=== PATIENT | female | born 1980 | race Caucasian/White ===

== ENCOUNTER 2021-10-16 23:51 | Emergency (ER) | payer OTHER, SELFPAY ==
--- NOTE | ~2021-10-16 | XR_ITS ---
EXAMINATION: XR hand RT min 3V DATE: 10/17/2021 00:20 INDICATION: Right hand injury and pain. TECHNIQUE: 3 views of right hand were obtained. COMPARISON: None. FINDINGS: Bone alignment is normal. No fracture. Joint spaces are normal. IMPRESSION: 1. No fracture. Reviewed, dictated and finalized at location A. IMPRESSION: 1. No fracture.
--- NOTE | ~2021-10-16 | XR_ITS ---
EXAMINATION: XR wrist RT min 3V DATE: 10/17/2021 00:20 INDICATION: Right wrist injury and pain. TECHNIQUE: 4 views of right wrist were obtained. COMPARISON: None. FINDINGS: Bone alignment is normal. No fracture. Joint spaces are normal. IMPRESSION: 1. No fracture. Reviewed, dictated and finalized at location A. IMPRESSION: 1. No fracture.
[2021-10-16 23:53] VITALS: BP 134/69; PULSE 68; RESP 16; TEMP 36.1; O2SAT 100
--- NOTE | 2021-10-17 00:31 | ED.UPPEXIN ---
HPI - Extremity Injury (Upper) General Chief Complaint: Extremity Injury, Upper <JOHNNIE Bradshaw Last Filed: 10/17/21 01:06> Stated Complaint: R WRIST INJURY <JOHNNIE Bradshaw Last Filed: 10/17/21 01:06> Time Seen by Provider: 10/17/21 00:22 <JOHNNIE Bradshaw Last Filed: 10/17/21 01:06> Source: patient <JOHNNIE Bradshaw Last Filed: 10/17/21 01:06> Mode of arrival: ambulatory <JOHNNIE Bradshaw Last Filed: 10/17/21 01:06> Limitations: no limitations <JOHNNIE Bradshaw Last Filed: 10/17/21 01:06> History of Present Illness HPI narrative: This is a 41-year-old female that presents to the emergency department for right wrist pain after an injury sustained just prior to arrival. Reports she tripped over her dog and landed on her right wrist. Reports pain and decreased range of motion. Denies any other injuries. Denies numbness. <JOHNNIE Bradshaw Last Filed: 10/17/21 01:06> Related Data Allergies/Adverse Reactions: Allergies Allergy/AdvReac Type Severity Reaction Status Date / Time Penicillins Allergy Mild HIVES Verified 10/17/21 00:44 pseudoephedrine Allergy Unknown HIVES Verified 10/17/21 00:44 ZIPRASIDONE HCL Allergy Severe resp Uncoded 10/17/21 00:44 difficulty ZIPRASIDONE MESYLATE Allergy Severe resp Uncoded 10/17/21 00:44 difficulty <JOHNNIE Bradshaw Last Filed: 10/17/21 01:06> Review of Systems Review of Systems: CONSTITUTIONAL: Denies fever MUSCULOSKELETAL: Reports, joint pain, and myalgia. NEUROLOGIC: Denies numbness <JOHNNIE Bradshaw Last Filed: 10/17/21 01:06> All systems reviewed & are unremarkable except as noted in HPI and below <JOHNNIE Bradshaw Last Filed: 10/17/21 01:06> [facility] Past Medical History Medical History: Medical History (Updated 10/17/21 @ 01:05 by Lien Hopkins PA-C) No active medical problems <Lien Hopkins PA-C - Last Filed: 10/17/21 01:06> Social History Social History: Social History (Updated 10/17/21 @ 00:32 by Lien Hopkins PA-C) Smoking status: Never smoker <Lien Hopkins PA-C - Last Filed: 10/17/21 01:06> Exam Narrative: GENERAL: Well-appearing, well-nourished, and in no acute distress. HEAD: Normocephalic, atraumatic. EYES: EOMI. EXTREMITIES: Normal range of motion. No edema or obvious deformity. Normal radial pulse SKIN: Warm, dry, no rash. NEURO: No focal deficits. Alert and oriented x3. PSYCH: Normal mood and affect <Lien Hopkins PA-C - Last Filed: 10/17/21 01:06> Course SAFETY SCIENTIST/PA Physician Supervision For this patient encounter, I reviewed the SAFETY SCIENTIST or PA documentation, treatment plan, and medical decision making <Kevin Baig MD - Last Filed: 10/17/21 03:18> Vital Signs Vital signs: Vital Signs Temperature 97 F L 10/16/21 23:53 Pulse Rate 68 10/16/21 23:53 Respiratory Rate 16 10/16/21 23:53 Blood Pressure 134/69 10/16/21 23:53 Pulse Oximetry 100 10/16/21 23:53 Oxygen Delivery Room Air 10/16/21 23:53 Temperature 97 F L 10/16/21 23:53 Pulse Rate 51 L 10/17/21 01:18 Respiratory Rate 18 10/17/21 01:18 Blood Pressure 117/53 L 10/17/21 01:18 Pulse Oximetry 97 10/17/21 01:18 Oxygen Delivery Room Air 10/16/21 23:53 <Lien Hopkins PA-C - Last Filed: 10/17/21 01:06> Vital Signs Temperature 97 F L 10/16/21 23:53 Pulse Rate 68 10/16/21 23:53 Respiratory Rate 16 10/16/21 23:53 Blood Pressure 134/69 10/16/21 23:53 Pulse Oximetry 100 10/16/21 23:53 Oxygen Delivery Room Air 10/16/21 23:53 Temperature 97 F L 10/16/21 23:53 Pulse Rate 51 L 10/17/21 01:18 Respiratory Rate 18 10/17/21 01:18 Blood Pressure 117/53 L 10/17/21 01:18 Pulse Oximetry 97 10/17/21 01:18 Oxygen Delivery Room Air 10/16/21 23:53 <Kevin Baig MD - Last Filed: 10/17/21 03:18> MDM - Extremity Injury (Upper) MDM Narrative Medical
[2021-10-17] MEDS: HYDROcodone/acetaminophen (*CRX) 5-325 MG TABLET 1 TAB PO (00:44)
[2021-10-17 01:18] VITALS: BP 117/53; PULSE 51; RESP 18; O2SAT 97
== END 2021-10-17 01:20 | disposition home or self-care (01) ==
PROVIDERS: Emergency Provider Emergency Medicine; PCP Family Medicine
DX: S69.91XA Unspecified injury of right wrist, hand and finger(s), initial encounter (principal); W01.0XXA Fall on same level from slipping, tripping and stumbling without subsequent striking against object, initial encounter
CPT/HCPCS: 73110; 73130; 99283; A9270

== ENCOUNTER 2022-09-17 10:10 | Emergency (ER) | payer OTHER, SELFPAY ==
--- NOTE | ~2022-09-17 | XR_ITS ---
EXAMINATION: XR forearm RT 2V INDICATION: Right forearm pain TECHNIQUE: Two views of the right forearm are obtained. COMPARISON: None available FINDINGS: Bone alignment is normal. There is no fracture. The soft tissues are unremarkable. IMPRESSION: 1. No acute osseous abnormality. Reviewed, dictated and finalized at location L.
--- NOTE | ~2022-09-17 | XR_ITS ---
EXAMINATION: XR hand RT min 3V INDICATION: Right hand pain TECHNIQUE: Three views of the right hand are obtained. COMPARISON: 10/17/2021 FINDINGS: Bone alignment is normal. There is no fracture. The joint spaces are normal. The soft tissu es are unremarkable. IMPRESSION: 1. No acute osseous abnormality. Reviewed, dictated and finalized at location L.
--- NOTE | 2022-09-17 10:13 | ED.UPPEXIN ---
HPI - Extremity Injury (Upper) General Chief Complaint: Extremity Injury, Upper Stated Complaint: R HAND/FOREARM INJ Time Seen by Provider: 09/17/22 10:12 Source: patient Mode of arrival: ambulatory Limitations: no limitations History of Present Illness HPI narrative: Kellie is a 42-year-old female patient presenting to the clinic today with complaints of right hand and forearm injury that occurred yesterday. She reports she was pulling a vine from a tree and the find broke and she landed on her right forearm/hand. Reports pain to the proximal right forearm with numbness and tingling into her fingers and some lateral hand pain. Mild swelling noted. Related Data Home Medications Medication Instructions Recorded Confirmed No Home Medications 09/17/22 09/17/22 Allergies Allergy/AdvReac Type Severity Reaction Status Date / Time Penicillins Allergy Mild HIVES Verified 09/17/22 10:24 pseudoephedrine Allergy Unknown HIVES Verified 09/17/22 10:24 ZIPRASIDONE HCL Allergy Severe resp Uncoded 09/17/22 10:24 difficulty ZIPRASIDONE MESYLATE Allergy Severe resp Uncoded 09/17/22 10:24 difficulty Review of Systems Review of Systems: Pertinent positives per HPI. Patient denies any fever, chills, rash, headache, visual changes, dizziness, cough, runny nose, sore throat, shortness of breath, chest pain, palpitations, nausea, vomiting, diarrhea, constipation, abdominal pain, or any urinary issues. PMFSH Past Medical History Medical History No active medical problems Social History Social History Smoking status: Never smoker Comments At the time of my signature, I reviewed and agree with the nursing past medical, surgical, social, and family history. There is no relevant family history pertinent to the patient complaint. Exam Narrative: General: Well-developed, well nourished, in no apparent distress Head: Normocephalic, atraumatic. Cardio: Regular rate and rhythm, s1 and s2 normal, no murmur appreciated. Resp: Clear to auscultation bilaterally, no rhonchi, rales, wheezing or rubs. Musculoskeletal: No deformity, tender to palpation over the proximal lateral right forearm and lateral hand, grossly normal range of motion, muscle strength strong and equal, peripheral pulse strong, no edema, no cyanosis, normal gait and station Course Course Emergency Course: Portions of this record may have been created with voice recognition software. Level of Care: Express Care Visit Vital Signs Vital signs: Vital signs reviewed MDM - Extremity Injury (Upper) MDM Narrative Medical decision making narrative: At the time of visit patient is resting comfortably on the exam table. X-rays of the right forearm and hand were completed and were negative for any sign of fracture or malalignment. I suspect patient has pain with swelling and contusion. Supportive measures were discussed with the patient she voiced understand standing of the discharge instructions and agrees to treatment plan. Differential Diagnosis Differential diagnosis: Likely fracture of hand and other (Contusion, soft tissue swelling, forearm fracture) Imaging Data Radiologist's impression: [facility] [place] [id number] [facility] [place] [address] XRay Report Signed Patient: Kellie Shah : 1980 MR#: [id number] Age/Sex: 42 / F Acct:[id number] Loc: [facility]? ? ADM Date: 09/17/22Attending Dr: Ordering Physician: Colin Avery APRN Date of Service: 09/17/22 Procedure(s): XR forearm RT 2V Accession Number(s): [id number] cc: Colin Avery APRN; Garo Howe MD~ EXAMINATION: XR forearm RT 2V INDICATION: Right forearm pain TECHNIQUE: Two views of the right forearm are obtained. COMPARISON: None available FINDINGS: Bone a
[2022-09-17 10:21] VITALS: BP 125/84; PULSE 58; RESP 16; TEMP 36.3; O2SAT 99
== END 2022-09-17 10:47 | disposition home or self-care (01) ==
PROVIDERS: Emergency Provider Nurse Practitioner Family; PCP Family Medicine
DX: S50.11XA Contusion of right forearm, initial encounter (principal); M79.641 Pain in right hand; T14.90XA Injury, unspecified, initial encounter
CPT/HCPCS: 73090; 73130; 99213; G0463

== ENCOUNTER 2024-03-31 11:45 | Emergency (ER) | payer OTHER, SELFPAY ==
--- NOTE | ~2024-03-31 | CT_ITS ---
Non-contrast CT scan of the Abdomen and Pelvis Clinical indication: Right flank pain Technique: 2.5 mm axial scans were obtained through the abdomen and pelvis without intravenous or or al contrast. Dose reduction technique was used on this scan by utilizing automated exposure control a nd iterative reconstruction technique. The dose-length product (DLP) was 1542.09 mGy-cm. Findings: Images through the lung bases reveal no abnormalities. There is a 3.5 mm stone at the right UVJ region, with mild right hydroureteronephrosis to this level. No left renal or left ureteral stone. No left hydronephrosis. The liver, spleen, pancreas, and adrenals appear normal. Cholecystectomy clips are present. There is no aortic aneurysm. There is no evidence of bowel obstruction. Images through the pelvis were performed. There is no evidence of ascites or lymphadenopathy. Urinary bladder unremarkable. No pelvic mass seen. Impression: 3.5 mm right UVJ stone, with mild right hydroureteronephrosis. Reviewed, dictated and finalized at [facility]. DELIVERER Impression: 3.5 mm right UVJ stone, with mild right hydroureteronephrosis.
[2024-03-31 11:58] VITALS: BP 152/80; PULSE 94; RESP 16; TEMP 36.4; O2SAT 99
--- NOTE | 2024-03-31 12:36 | PC.NURSE ---
Pt. has no uterus. Bedside cancelled.
[2024-03-31 12:37] VITALS: BP 149/90; PULSE 74; RESP 16; O2SAT 99
[2024-03-31] MEDS: HYDROmorphone HCL INJ (*CRX) 1 MG/ML SYR IV PUSH ×2 (12:38→13:34)
[2024-03-31] MEDS: ONDANSETRON INJ 4 MG/2 ML VIAL IV PUSH (12:38)
[2024-03-31] MEDS: SODIUM CHLORIDE 0.9% IV 1,000 ML 999 ML IV CONT (12:39)
[2024-03-31 12:52] LABS: Basophils Absolute Auto 0.1 K/mm3 (0.0-0.1); Basophils Percent Auto 0.8 % (0.2-1.2); Eosinophils Absolute Auto 0.2 K/mm3 (0-0.3); Eosinophils Percent Auto 1.7 % (0-4.4); Hematocrit 43.4 % (37.0-47.0); Immature Granulocyte Absolute 0.02 K/mm3 (0.00-0.031); Immature Granulocyte Percent A 0.2 % (0-0.5); Lymphocytes Percent Auto 38.5 % (18.3-44.2); Mean Corpuscular HGB Conc 34.6 g/dl (32-36); Mean Corpuscular Hemoglobin 31.4 pg (26-34); Mean Platelet Volume 11.7 fl (7.4-10.4); Monocytes Absolute Auto 0.7 K/mm3 (0.1-0.6); Monocytes Percent Auto 6.3 % (2.6-8.5); Neutrophils Absolute Auto 5.5 K/mm3 (1.3-6.7); Neutrophils Percent Auto 52.5 % (45.5-73.1); Platelet Count Result 284 k/mm3 (150-375); Red Blood Count 4.77 M/mm3 (4.2-5.4); Red Cell Distribution Width 11.9 % (11.5-14.5); White Blood Count 10.4 K/mm3 (4.5-10.0)
[2024-03-31 12:58] LABS: Alanine Aminotransferase 16 U/L (6-35); Albumin Level 4.3 g/dL (3.5-5.1); Alkaline Phosphatase 105 U/L (38-126); Anion Gap 12 mmol/L (4-12); Aspartate Amino Transferase 19 U/L (14-36); Bilirubin,Total 0.6 mg/dL (0.2-1.3); Blood Urea Nitrogen 9 mg/dL (7-17); Calcium 9.4 mg/dL (8.4-10.2); Carbon Dioxide 21 mmol/L (22-30); Chloride 105 mmol/L (98-107); Estimated CRCL calculation 112 ml/min; Estimated Glomerular Filt Rate > 60; Glucose 162 mg/dL (65-110); Lipase 214 U/L (23-300); Potassium 3.7 mmol/L (3.4-5.0); Sodium 138 mmol/L (137-145)
[2024-03-31 13:34] VITALS: BP 156/93; PULSE 60; RESP 16; O2SAT 100
[2024-03-31 13:59] LABS: Add Urine Microscopic? YES; Appearance Urine Cloudy (Clear); Bacteria Urine 4+ /hpf; Bilirubin Urine Negative (Negative); Blood Urine Negative (Negative); Color Urine Dark Yellow (Yellow); Glucose Urine UA Negative (Negative); Ketones Urine 2+ mg/dL (Negative); Leukocyte Esterase Ur Negative LEU/UL (Negative); Mucus Urine Present /lpf; Need Manual Microscopic Reviewed; Nitrate Urine Negative (Negative); Protein Urine 1+ mg/dL (Negative); Squamous Epithelial Cell Urine Many /hpf (Few); WBC Urine 0-5 /hpf (0-3); pH Urine 5.5 (5.0-9.0)
[2024-03-31] MEDS: KETOROLAC 15 MG/ML VIAL (*BKC) IV PUSH (14:25)
[2024-03-31 14:26] VITALS: BP 164/83; PULSE 51; RESP 14; O2SAT 98
[2024-03-31] MEDS: TAMSULOSIN HCL 0.4 MG CAPSULE PO (14:26)
--- NOTE | 2024-03-31 15:11 | ED.GENADULT ---
HPI - General Adult General Chief complaint: Urogenital-Female Stated complaint: Right flank pain x 1 hour Time Seen by Provider: 03/31/24 12:11 History of Present Illness HPI narrative: patient is a 44-year-old female who presents emergency department chief complaint of right-sided flank pain. The patient reports having nausea vomiting reports started around 10:00 a.m. this morning patient reports minimally uncomfortable reports he has not had pain like this before in the past. Related Data Allergies Allergy/AdvReac Type Severity Reaction Status Date / Time Penicillins Allergy Mild HIVES Verified 09/17/22 10:24 pseudoephedrine Allergy Unknown HIVES Verified 09/17/22 10:24 ZIPRASIDONE HCL Allergy Severe resp Uncoded 09/17/22 10:24 difficulty ZIPRASIDONE MESYLATE Allergy Severe resp Uncoded 09/17/22 10:24 difficulty Review of Systems Review of Systems: A 10 system review of systems was completed on the patient and is negative except for what is stated in the HPI. Nursing and ancillary documentation was reviewed. [facility] Past Medical History Medical History No active medical problems Social History Social History Smoking status: Never smoker Exam Narrative: GENERAL: Well-appearing, well-nourished, and in moderate acute distress. HEAD: Normocephalic, atraumatic. EYES: PERRLA and EOMI. ENT: Nares clear, no rhinorrhea or epistaxis. Mucous membranes moist. NECK: Supple. CHEST: Clear to auscultation. No respiratory distress. HEART: Regular rate and rhythm. No murmur heard. Normal peripheral pulses. ABDOMEN: Soft, nontender, nondistended, normal active bowel sounds. EXTREMITIES: Normal range of motion. No edema. SKIN: Warm, dry, no rash. NEURO: No focal deficits. Alert and oriented x3. PSYCH: Normal mood and affect. Course Vital Signs Vital signs: Vital Signs Temperature 36.4 C L 03/31/24 11:58 Pulse Rate 94 03/31/24 11:58 Respiratory Rate 16 03/31/24 11:58 Blood Pressure 152/80 H 03/31/24 11:58 Pulse Oximetry 99 03/31/24 11:58 Temperature 36.4 C L 03/31/24 11:58 Pulse Rate 51 L 03/31/24 14:26 Respiratory Rate 14 03/31/24 14:26 Blood Pressure 164/83 H 03/31/24 14:26 Pulse Oximetry 98 03/31/24 14:26 Medical Decision Making MDM Narrative Medical decision making narrative: Differential diagnosis includes ureterolithiasis, pyelonephritis, UTI, renal failure Laboratory studies were obtained on the patient showed normal CBC CMP was normal limits urinalysis showed no evidence UTI CT scan of the abdomen pelvis showed a 3.5 mm stone at the UVJ Vital Signs Vital Signs: Vital Signs Temperature 36.4 C L 03/31/24 11:58 Pulse Rate 94 03/31/24 11:58 Respiratory Rate 16 03/31/24 11:58 Blood Pressure 152/80 H 03/31/24 11:58 Pulse Oximetry 99 03/31/24 11:58 Temperature 36.4 C L 03/31/24 11:58 Pulse Rate 51 L 03/31/24 14:26 Respiratory Rate 14 03/31/24 14:26 Blood Pressure 164/83 H 03/31/24 14:26 Pulse Oximetry 98 03/31/24 14:26 Lab Data 03/31/24 12:43 03/31/24 12:43 Labs: Lab Results 03/31/24 03/31/24 Range/Units 12:43 13:37 WBC 10.4 H (4.5-10.0) K/mm3 RBC 4.77 (4.2-5.4) M/mm3 Hgb 15.0 (12.0-15.0) g/dL Hct 43.4 (37.0-47.0) % MCV 91.0 (80-100) fl MCH 31.4 (26-34) pg MCHC 34.6 (32-36) g/dl RDW 11.9 (11.5-14.5) % Plt Count 284 (150-375) k/mm3 MPV 11.7 H (7.4-10.4) fl Immature Gran % (Auto) 0.2 (0-0.5) % Neut % (Auto) 52.5 (45.5-73.1) % Lymph % (Auto) 38.5 (18.3-44.2) % [place] % (Auto) 6.3 (2.6-8.5) % Eos % (Auto) 1.7 (0-4.4) % Baso % (Auto) 0.8 (0.2-1.2) % Lymph # (Auto) 4.00 H (0.9-3.2) K/mm3 [place] # (Auto) 0.7 H (0.1-0.6) K/mm3 Eos # (Auto) 0.2 (0-0.3) K/mm3 Baso # (Auto) 0.1 (0.0-0.1) K/mm3 Abs Immat Gran (auto) 0.02 (0.00-0.031) K/mm3 Absolute Neuts (auto) 5.5 (1.3-6.7) K/mm3 Absolute Nucleated RBC 0.000 (0.0-0.012) K/mm3 Nucleated RBC % 0.0 (0.0-0.2) % Sodium 138 (137-145) mmol/L Potassium 3.7 (3.4-5.0) mmol/L Chloride 105 (98-107) mmol/L Carbon Dioxide 21 L (22-30) mmol/L Anion Gap 12 (4-12) mmol/L BUN 9 (7-17) mg/dL Creatinine 0.69 L (0.7-1.0) mg/dL Estim Creat Clear Calc 112 ml/min Estimated GFR > 60 (59 - ) Glucose 162 H (65-110) mg/dL Calcium 9.4 (8.4-10.2) mg/dL Total Bilirubin 0.6 (0.2-1.3) mg/dL AST 19 (14-36) U/L ALT 16 (6-35) U/L Alkaline Phosphatase 105 (38-126) U/L Total Protein 7.0 (6.3-8.2) g/dL Albumin 4.3 (3.5-5.1) g/dL Lipase 214 (23-300) U/L Urine Color Dark yellow (Yellow) Urine Appearance Cloudy H (Clear) Urine pH 5.5 (5.0-9.0) Ur Specific [place] 1.030 (1.001-1.035) Urine Protein 1+ H (Negative) mg/dL Urine Glucose (UA) Negative (Negative) mg/dL Urine Ketones 2+ H (Negative) mg/dL Ur Blood (Man) Negative (Negative) Urine Nitrate Negative (Negative) Urine Bilirubin Negative (Negative) Urine Urobilinogen 1.0 (<2.0) mg/dL Add Ur Microanalysis Reviewed Leukocyte Esterase Rfl Negative (Negative) MISTY/UL Urine RBC 3-5 H (0-2) /hpf Urine WBC 0-5 (0-3) /hpf Ur Squamous Epith Cells Many H (Few) /hpf Urine Bacteria 4+ H /hpf Urine Casts 3-5 Urine Mucus Present /lpf Discharge Plan Discharge Clinical Impression: Ureterolithiasis Patient Disposition: Home, Self-Care Condition: Stable Instructions: Antibiotic Form, Kidney Stones (ED), How to Strain Your Urine (ED) Patient Language: Grenadian Prescriptions: New tamsulosin [Flomax] 0.4 mg capsule 0.4 mg PO DAILY Qty: 20 0RF hydrocodone-acetaminophen 5-325 mg tablet 1 tablet PO Q6H PRN (Reason: pain) 3 Days Qty: 12 0RF ondansetron 4 mg tablet,disintegrating 4 mg PO Q8H PRN (Reason: nausea and vomiting) Qty: 10 0RF Follow-up/Referrals: Gian Baltazar MD [Physician] - Garo Howe MD [Primary Care Provider] - Time of Disposition: 15:16
[2024-03-31 15:39] VITALS: BP 142/88; PULSE 51; RESP 14; O2SAT 99
== END 2024-03-31 15:41 | disposition home or self-care (01) ==
PROVIDERS: Emergency Provider Emergency Medicine; PCP Family Medicine
DX: N13.2 Hydronephrosis with renal and ureteral calculous obstruction (principal)
CPT/HCPCS: 36415; 74176; 80053; 81001; 83690; 85025; 96361; 96374; 96375; 96376; 99284; A9270; J1171; J1885; J2405; J7030